=== PATIENT | female | born 1975 | race Caucasian/White ===

== ENCOUNTER 2016-09-15 17:50 | Emergency (ER) | payer OTHER ==
[~2016-09-15] VITALS: Ht 172.7 cm; Wt 114.7 kg
[~2016-09-15 17:50] MED LIST: ATV/1 PO; ERGO1CAP35 PO
[2016-09-15 17:51] VITALS: TEMP 36.7; Ht 172.7 cm; Wt 114.7 kg
[2016-09-15] MEDS ORDERED: PANT40TA PO (18:13)
[2016-09-15 18:31] LABS: BASO % 0.5 %; BASO ABS # 0.04 K/uL (0-0.2); COMPLETE YES; EOS % 1.5 %; HEMATOCRIT 39.9 % (37-47); IG% 0.1 %; LYMPH % 32.2 %; LYMPH ABS # 2.43 K/uL (1.2-3.4); MEAN CELL VOLUME 86.4 fL (80-100); MEAN CORPUSCULAR HEMOGLOBIN 28.6 pg (25-34); MEAN CORPUSCULAR HGB CONC 33.1 g/dl (32-36); MEAN PLATELET VOLUME 9.9 fL (7.4-10.4); MONO % 6.5 %; NEUT % 59.2 %; PLATELET COUNT 235 K/uL (130-400); RED BLOOD COUNT 4.62 M/uL (4.2-5.4); WHITE BLOOD COUNT 7.54 K/uL (4.8-10.8)
[2016-09-15 18:43] LABS: PARTIAL THROMBOPLASTIN RATIO 1.1; PROTHROMBIN TIME (PATIENT) 10.7 SECONDS (9.0-12.0)
[2016-09-15 18:49] LABS: ALT/SGPT 25 U/L (12-78); BLOOD UREA NITROGEN 13 mg/dl (7-18); BUN/CREATININE RATIO 14.4 (10-20); CALCIUM 8.9 mg/dl (8.5-10.1); CARBON DIOXIDE 29 mmol/L (21-32); CHLORIDE 104 mmol/L (98-107); CREATININE 0.87 mg/dl (0.60-1.20); GLUCOSE 107 mg/dl (70-99); POTASSIUM 4.2 mmol/L (3.5-5.1); SODIUM 138 mmol/L (136-145)
--- NOTE | 2016-09-15 18:49 | DIAGNOSTIC IMAGING REPORT ---
CHEST 2 VIEWS ROUTINE CLINICAL HISTORY: Sternal chest pain. COMPARISON STUDY: Chest radiograph and chest CT October 28, 2015. FINDINGS: Lung volumes are normal. Lungs are clear. No pneumothorax or pleural effusion is present. Cardiomediastinal silhouette is stable. There is no evidence of pulmonary edema. IMPRESSION: No acute cardiopulmonary findings. Electronically signed by: Hi Balbuena M.D. 09/15/2016 6:48 PM Dictated Date/Time: 09/15/2016 6:47 PM
[2016-09-15 18:54] LABS: ALB/GLOB RATIO 1.1 (0.9-2); ALKALINE PHOSPHATASE 56 U/L (45-117); AST/SGOT 19 U/L (15-37); CKMB/CK RATIO 1.1 (0-3.0)
[2016-09-15 19:38] VITALS: BP 124/75; PULSE 88; O2SAT 98
--- NOTE | 2016-09-15 22:20 | EMERGENCY ROOM VISIT NOTE ---
History First contact with patient: 17:55 Chief Complaint: CHEST PAIN Stated Complaint: CHEST TIGHTNESS Nursing Triage Summary: see triage note History of Present Illness The patient is a 40 year old white female who presents to the Emergency Room with complaints of chest tightness that started 4 days ago and has been present since. She also notes a mild headache today as well as some mild nausea. No vomiting. No shortness of breath. No abdominal pain. She has had similar discomfort in the past and had a thorough workup at that time. She denies any vigorous physical activity over the past several days. She denies any heavy lifting. She points to her sternal area as the area of discomfort. She has a history of factor V Leiden mutation and would like to be checked out. She denies any leg pain or recent long car rides or flights. Review of Systems REVIEW OF SYSTEM: HEENT: No dizziness, visual problems, hearing loss, or tinnitus. There is no difficulty swallowing and no oral lesions are present. PULMONARY: No cough, shortness of breath, sputum production or hemoptysis. CARDIOVASCULAR: No palpitations, shortness of breath or peripheral edema. GASTROINTESTINAL: No diarrhea, constipation, nausea, vomiting, or abdominal pain. GENITOURINARY: No dysuria, frequency, urgency or nocturia. NEUROLOGIC: No weakness, muscle tenderness, epilepsy or history of neurological problems. No history of chronic headaches. MUSCULOSKELETAL: No history of joint tenderness/swelling. No history of arthritis or arthralgias. SKIN: No rashes or lesions. PSYCHIATRIC: No history of depression or mental illness. ENDOCRINE: No history of diabetes, thyroid disorders, or abnormal hair growth. Past Medical/Surgical History Medical Problems: (1) Bronchitis (2) Factor V Leiden mutation Family History Diabetes mellitus FH: cancer FHx: heart disease Hypertension Social History Smoking Status: Current Every Day Smoker Smokeless Tobacco Use: No Alcohol Use: none Housing Status: lives with family Occupation Status: employed Current/Historical Medications Scheduled Pantoprazole (Protonix), 40 MG PO DAILY Scheduled PRN Lorazepam (Ativan), 1 MG PO Q6H PRN for Anxiety/Agitation Physical Exam Vital Signs Date Time Temp Pulse Resp B/P (MAP) Pulse Ox O2 Delivery O2 Flow Rate FiO2 09/15/16 19:38 88 20 124/75 98 09/15/16 18:54 68 09/15/16 18:28 97 Room Air 09/15/16 18:04 89 09/15/16 17:51 36.7 77 20 175/112 97 Room Air Pain Rating (0-10): 3.0 Physical Exam Gen.: Well-developed, well-nourished, middle-aged white female, in no acute distress. Sitting on a bed. Alert and oriented. Skin: Warm and dry with good turgor. No rashes or lesions. No ecchymosis or erythema. The patient is not diaphoretic. No abrasions. Heart: Heart RRR. No MGR. Peripheral pulses are 2+. Lungs: Lungs are clear to auscultation. No crackles rhonchi or wheezing. Good air movement. The patient is able to take a deep breath. Abdomen: Abdomen was inspected, auscultated, and palpated. Obese. Bowel sounds present x 4. Soft, nontender to palpation. No hepato-splenomegaly. No masses noted. No rebound. No pain over McBurney's point. No CVA tenderness. Musculoskeletal: No discomfort with palpation of her legs. No discomfort with resisted abduction of the arms or resisted chest press. Mild discomfort with palpation over the sternocostal junction bilaterally. Medical Decision & Procedures ER Provider Diagnostic Interpretation: Chest x-ray obtained today was unremarkable. This was read by radiology. Laboratory Results 09/15/16 18:20 Red Blood Count 4.62, Mean Corpuscular Volume 86.4, Mean Corpuscular Hemoglobin 28.6, Mean Corpuscular Hemoglobin Concent 33.1, Mean Platelet Volume 9.9, Neutrophils (%) (Auto) 59.2, Lymphocytes (%) (Auto) 32.2, Monocytes (%) (Auto) 6.5, Eosinophils (%) (Auto) 1.5, Basophils (%) (Auto) 0.5, Neutrophils # (Auto) 4.46, Lymphocytes # (Auto) 2.43, Monocytes # (Auto) 0.49, Eosinophils # (Auto) 0.11, Basophils # (Auto) 0.04 09/15/16 18:20 Test 09/15/16 18:20 White Blood Count 7.54 K/uL (4.8-10.8) Red Blood Count 4.62 M/uL (4.2-5.4) Hemoglobin 13.2 g/dL (12.0-16.0) Hematocrit 39.9 % (37-47) Mean Corpuscular Volume 86.4 fL (80-100) Mean Corpuscular Hemoglobin 28.6 pg (25-34) Mean Corpuscular Hemoglobin Concent 33.1 g/dl (32-36) Platelet Count 235 K/uL (130-400) Mean Platelet Volume 9.9 fL (7.4-10.4) Neutrophils (%) (Auto) 59.2 % Lymphocytes (%) (Auto) 32.2 % Monocytes (%) (Auto) 6.5 % Eosinophils (%) (Auto) 1.5 % Basophils (%) (Auto) 0.5 % Neutrophils # (Auto) 4.46 K/uL (1.4-6.5) Lymphocytes # (Auto) 2.43 K/uL (1.2-3.4) Monocytes # (Auto) 0.49 K/uL (0.11-0.59) Eosinophils # (Auto) 0.11 K/uL (0-0.5) Basophils # (Auto) 0.04 K/uL (0-0.2) RDW Standard Deviation 42.3 fL (36.4-46.3) RDW Coefficient of Variation 13.3 % (11.5-14.5) Immature Granulocyte % (Auto) 0.1 % Immature Granulocyte # (Auto) 0.01 K/uL (0.00-0.02) Prothrombin Time 10.7 SECONDS (9.0-12.0) Prothromb Time International Ratio 1.0 (0.9-1.1) Activated Partial Thromboplast Time 29.5 SECONDS (21.0-31.0) Partial Thromboplastin Ratio 1.1 D-Dimer 220 ug/L FEU (0-500) Anion Gap 5.0 mmol/L (3-11) Est Creatinine Clear Calc Drug Dose 112.0 ml/min Estimated GFR () 95.2 Estimated GFR (Non- 82.2 BUN/Creatinine Ratio 14.4 (10-20) Calcium Level 8.9 mg/dl (8.5-10.1) Total Bilirubin 0.4 mg/dl (0.2-1) Aspartate Amino Transf (AST/SGOT) 19 U/L (15-37) Alanine Aminotransferase (ALT/SGPT) 25 U/L (12-78) Alkaline Phosphatase 56 U/L (45-117) Total Creatine Kinase 151 U/L (26-192) Creatine Kinase MB 1.7 ng/ml (0.5-3.6) Creatine Kinase MB Ratio 1.1 (0-3.0) Troponin I < 0.015 ng/ml (0-0.045) Total Protein 7.4 gm/dl (6.4-8.2) Albumin 3.9 gm/dl (3.4-5.0) Globulin 3.5 gm/dl (2.5-4.0) Albumin/Globulin Ratio 1.1 (0.9-2) CBC, chem panel, CK/CK-MB, troponin, d-dimer, and PTT/INR were all obtained. They are all unremarkable. ED Course Patient was educated regarding today's findings. Conservative care measures were discussed. IV was established. Labs were obtained. They are unremarkable. Chest x-ray and EKG were also obtained. They are also unremarkable. Patient was instructed to follow-up with her PCP for reexamination or return to the ED for any acute changes. She was initially hypertensive upon arrival but was normotensive when rechecked before discharge. Symptoms have been present for more than 4 days. Only one troponin was obtained due to this. Care plan was discussed with Dr. Colin. Tylenol and Motrin every 6 hours as needed for discomfort. Medical Decision Possibility of ACS, acute AK, PE, muscle strain, costochondritis, cholecystitis , gastritis, and dyspepsia were considered among others. Impression Primary Impression: Non-cardiac chest pain Departure Information Dispostion Home / Self-Care Condition GOOD Forms HOME CARE DOCUMENTATION FORM, MOTRIN USE, IMPORTANT VISIT INFORMATION Patient Instructions [facility] Additional Instructions Ibuprofen 600 mg every 6 hours with food as needed for discomfort Follow-up with your PCP for reexamination if symptoms persist Return to the ED for any acute worsening of symptoms Avoid any heavy lifting until symptoms fully resolved
== END 2016-09-15 19:41 | disposition home or self-care (01) ==
LOC: C.EDB 17:50
DX: R07.89 Other chest pain (principal); D68.51 Activated protein C resistance; F17.200 Nicotine dependence, unspecified, uncomplicated; Z83.3 Family history of diabetes mellitus; Z82.49 Family history of ischemic heart disease and other diseases of the circulatory system